=== PATIENT | female | born 1995 | race American Indian/Alaskan Native ===

== ENCOUNTER 2018-11-23 22:06 | Emergency (ER) | payer MEDICAID ==
[2018-11-24 00:11] LABS: HCG Qualitative,Urine Positive (Negative)
[2018-11-24] MEDS ORDERED: TYLENOL PO ONE (02:48)
[2018-11-24] MEDS ORDERED: FLEXERIL PO ONE (02:48)
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
[2018-11-24 03:33] VITALS: BP 107/64
== END 2018-11-24 03:25 | disposition home or self-care (01) ==
LOC: ED 22:06
DX: M62.830 Muscle spasm of back (principal); F17.200 Nicotine dependence, unspecified, uncomplicated; V89.2XXA Person injured in unspecified motor-vehicle accident, traffic, initial encounter; Y93.89 Activity, other specified; Y92.488 Other paved roadways as the place of occurrence of the external cause; Y99.8 Other external cause status
CPT/HCPCS: 81025; 99283